=== PATIENT | female | born 1965 | race Caucasian/White ===

== ENCOUNTER → 2019-02-02 | Outpatient (CLI) | payer OTHER ==
[~2019-02-02] VITALS: Ht 160 cm; Wt 60.8 kg
[~2019-02-02] MED LIST: SINCALIDE 1.22 MCG in IV NORMAL SALINE 50ML 30 ML IV ONE
--- NOTE | 2019-02-02 12:22 | RAD ---
Right upper quadrant abdominal ultrasound without comparison for right upper quadrant pain. Technique an findings: Real-time grayscale and color Doppler evaluation of the right upper quadrant abdominal organs is performed. Visualized portions the pancreas are grossly unremarkable. The pancreatic tail was not well seen. The IVC is patent. The liver is normal in size, contour, and echogenicity, with no focal parenchymal abnormalities. No intra or extrahepatic biliary ductal dilatation is seen. The common bile duct measures 2 mm in thickness. There is hepatopedal flow within the patent portal vein. The gallbladder is partially fluid distended and grossly unremarkable with no shadowing stones or sludge, and no sonographic Barger sign. The right kidney measures 9.3 x 3.7 x 4.3 cm and is free of any hydronephrosis or focal parenchymal abnormality. No abdominal ascites is seen. IMPRESSION: 1. No sonographically discernible abnormality of the right upper quadrant. Electronically signed by: Titus Casiano MD (02/02/2019 12:19 PM) [id number]
--- NOTE | 2019-02-02 15:18 | RAD ---
EXAM: HEPATOBILIARY SCINTIGRAPHY WITH GALLBLADDER EJECTION FRACTION CALCULATION. HISTORY: Abdominal pain/nausea. TECHNIQUE: 5.0 mCi technetium-99m Choletec were administered intravenously and scintigraphic images of the abdomen obtained. After filling of the gallbladder, 1.2 mcg of sincalide were infused and the gallbladder ejection fraction calculated. FINDINGS: There is prompt hepatic clearance of tracer from the blood pool. There is homogeneous distribution throughout the liver. There is normal filling of the gallbladder and clearance into the biliary tree and small bowel. The gallbladder ejection fraction is 67% (normal >35%). IMPRESSION: 1. Normal gallbladder ejection fraction. Electronically signed by: Indira Foley MD (02/02/2019 3:16 PM) [facility]
== END | disposition home or self-care (01) ==
LOC: US 09:33
PROVIDERS: ATTEND Internal Medicine Gastroenterology
DX: K82.8 Other specified diseases of gallbladder (principal)
CPT/HCPCS: 76705; 78227; A9537; J2805